=== PATIENT | male | born 1975 | race Caucasian/White ===

== ENCOUNTER 2018-01-30 12:50 | Emergency (ER) | payer SELFPAY ==
[2018-01-30 13:57] VITALS: BP 133/76
--- NOTE | 2018-01-30 15:31 | UC ---
Neck Pain HPI - HPI Summary HPI Summary: Patient was doing heavy lifting at work 2 days prior to evaluation and urgent care complains of neck and shoulder pain radiates into his left shoulder has chronic issues with this has had a fusion in the past that [place] a doctor machelle in [place] for this. Patient has an appointment scheduled with Dr. carty in [place] - History of Current Complaint Hx Obtained From: Patient Onset/Duration Of Injury/Symptoms: Days - 2 Timing: Constant Onset/Duration: Worse Since - chronic issue with neck and shoulder with acute exacerbation 2 days ago lifting heavy doors at work Severity: Moderate Pain Intensity: 6 Pain Scale Used: 0-10 Numeric Location: Discrete At: Character: Aching, Stiff, Spasmotic Aggravating Factors: Movement Alleviating Factors: Nothing Related History: Occupational Injury, Previous Neck Injury <Jenni Gerard - Last Filed: 02/04/18 09:49> <Liz Carson - Last Filed: 02/05/18 10:08> - History of Current Complaint Chief Complaint: UCBackPain Stated Complaint: NECK/ SHOULDER INJURY (WC) Time Seen by Provider: 01/30/18 15:20 - Allergies/Home Medications Allergies/Adverse Reactions: Allergies Allergy/AdvReac Type Severity Reaction Status Date / Time No Known Allergies Allergy Verified 01/30/18 13:52 Home Medications: Home Medications Naproxen TAB* [Naprosyn 250 mg TAB*] 500 mg PO BID 01/30/18 [History Confirmed 01/30/18] PMH/Surg Hx/FS Hx/Imm Hx Previously Healthy: Yes - number - Surgical History Surgical History: Yes Surgery Procedure, Year, and Place: Right Carpal Tunnel Release, 2013, [place]; [id number] Fusion, 2012, [place]; Appendectomy, ~2007, [place] - Family History Known Family History: Positive: None - Social History Occupation: Employed Full-time - g Lives: With Family Alcohol Use: Weekly Substance Use Type: None Smoking Status (MU): Heavy Every Day Tobacco Smoker Type: Cigarettes Amount Used/How Often: 1 PPD Length of Time of Smoking/Using Tobacco: Since Age 14 Have You Smoked in the Last Year: Yes Household Exposure Type: Cigarettes Cessation Counseling: Counseled 3+Min - 10 Min <Jenni Gerard - Last Filed: 02/04/18 09:49> Review Of Systems Constitutional: Positive: Negative Skin: Positive: Negative Eyes: Positive: Negative ENT: Positive: Negative Respiratory: Positive: Negative Cardiovascular: Positive: Negative Gastrointestinal: Positive: Negative Genitourinary: Positive: Negative Musculoskeletal: Positive: Arthralgia - left shoulder and neck pain Neurological: Positive: Negative Psychological: Positive: Negative All Other Systems Reviewed And Are Negative: Yes <Jenni Gerard - Last Filed: 02/04/18 09:49> Physical Exam Triage Information Reviewed: Yes Appearance: Well-Appearing, Well-Nourished, Pain Distress Vital Signs: Initial Vital Signs Temp 98.5 F 01/30/18 13:49 Pulse 96 01/30/18 13:49 Resp 16 01/30/18 13:49 BP 133/76 01/30/18 13:49 Pulse Ox 99 01/30/18 13:49 Vital Signs Reviewed: Yes Eye Exam: Normal Eyes: Positive: Conjunctiva Clear ENT Exam: Normal ENT: Positive: Normal ENT inspection, Hearing grossly normal. Negative: Nasal congestion, Trismus, Muffled voice, Hoarse voice Dental Exam: Normal Neck exam: Normal Neck: Positive: Supple, Tenderness @ - muscular tenderness Respiratory Exam: Normal Respiratory: Positive: Chest non-tender, Lungs clear, Normal breath sounds, No respiratory distress, No accessory muscle use Cardiovascular Exam: Normal Cardiovascular: Positive: RRR, No Murmur, Pulses Normal, Brisk Capillary Refill Musculoskeletal Exam: Other Musculoskeletal: Positive: No Edema, Strength Limited @ - left shoulder/arm Neurological Exam: Normal Neurological: Positive: Alert, Muscle Tone Normal Psychological Exam: Normal Skin Exam: Normal <Jenni Gerard - Last Filed: 02/04/18 09:49> Vital Signs: Initial Vital Signs Temp 98.5 F 01/30/18 13:49 Pulse 96 01/30/18 13:49 Resp 16 01/30/18 13:49 BP 133/76 01/30/18 13:49 Pulse Ox 99 01/30/18 13:49 <Liz Carson - Last Filed: 02/05/18 10:08> Neck Pain Course/Dx - Course Course Of Treatment: Provided patient with work note until follow with primary care doctor, pain control plan will be to follow up with his primary care and [facility] - Differential Dx/Diagnosis Provider Diagnoses: Left neck and shoulder pain <Jenni Gerard - Last Filed: 02/04/18 09:49> Discharge - Sign-Out/Discharge Documenting (check all that apply): Discharge/Admit/Transfer - Billing Disposition and Condition Condition: STABLE Disposition: HOME <Jenni Gerard - Last Filed: 02/04/18 09:49> - Billing Disposition and Condition Condition: STABLE Disposition: HOME <HonLiz - Last Filed: 02/05/18 10:08> - Discharge Plan Condition: Stable Disposition: HOME Prescriptions: Cyclobenzaprine TAB* [Flexeril 10 MG TAB*] 10 mg PO TID PRN #21 tab PRN Reason: muscle spasm Tramadol HCl [Ultram] 50 mg PO QID PRN #25 tablet MDD 4 PRN Reason: pain Patient Education Materials: Cervical Strain (ED), Acute Neck Pain (ED) Forms: *Work Release Referrals: Higinio Elise [Primary Care Provider] - Additional Instructions: Follow with your neck/drug regulatory affairs specialist in [place] on Thursday recheck as needed
== END 2018-01-30 15:43 | disposition home or self-care (01) ==
LOC: UCCORT 12:50
DX: M54.2 Cervicalgia (principal); M25.512 Pain in left shoulder; Z71.6 Tobacco abuse counseling; F17.210 Nicotine dependence, cigarettes, uncomplicated
CPT/HCPCS: 99212; G0463